=== PATIENT | female | born 1990 | race Caucasian/White ===

== ENCOUNTER 2017-09-27 07:59 | Emergency (ER) | payer OTHER ==
[~2017-09-27] VITALS: Ht 152.4 cm; Wt 64.0 kg
[~2017-09-27 07:59] MED LIST: ZOLOFT100 MG PO
[2017-09-27 08:47] LABS: HEMATOCRIT 39.3 % (36.0-46.0); HEMOGLOBIN 13.4 G/DL (11.9-15.5); MCH 28.6 PG (29.0-34.0); MCHC 34.1 G/DL (30.0-36.0); MCV 83.8 FL (83-99); PLATELET COUNT 354 K/uL (156-360); RBC DIS.WIDTH-CV 13.2 % (11.8-14.6); RBC DIS.WIDTH-SD 40.3 % (39-53); RED BLOOD COUNT 4.69 M/uL (3.80-5.20); WHITE BLOOD COUNT 11.4 K/uL (4.1-10.2)
[2017-09-27 08:54] LABS: APPEARANCE CLOUDY ((CLEAR)); BILIRUBIN NEGATIVE; BLOOD NEGATIVE; COLOR YELLOW ((YELLOW)); GLUCOSE (STRIP) NEGATIVE; KETONES NEGATIVE; LEUKOCYTES MODERATE; NITRITE NEGATIVE; PROTEIN (STRIP) 30; SPECIFIC GRAVITY 1.026 (1.000-1.030); UROBILINOGEN 0.2 MG/DL (0.2-1.0)
[2017-09-27 08:55] LABS: ALBUMIN 4.5 g/dL (3.2-4.8)
[2017-09-27 08:56] LABS: AMYLASE 91 IU/L (1-118); CHLORIDE 105 mEq/L (99-109); POTASSIUM 4.3 mEq/L (3.7-5.4); SODIUM 140 mEq/L (136-147)
[2017-09-27 08:58] LABS: GLUCOSE 120 mg/dL (70-99); TOTAL PROTEIN 8.7 g/dL (6.4-8.3)
[2017-09-27 09:00] LABS: TOTAL BILIRUBIN 0.3 mg/dL (0.0-1.0)
[2017-09-27 09:01] LABS: ALKALINE PHOSPHATASE 65 IU/L (3-129)
[2017-09-27 09:02] LABS: CREATININE 0.8 mg/dL (0.6-1.3); GFR ESTIMATE (CALCULATED) > 59 mL/min/
[2017-09-27 09:03] LABS: AST (GOT) 23 IU/L (2-34); UREA NITROGEN (BUN) 14 mg/dL (9-23)
[2017-09-27 09:04] LABS: ALT (GPT) 16 IU/L (3-49)
[2017-09-27 09:05] LABS: LIPASE 38 U/L (1.0-51.0)
[2017-09-27 09:05] LABS: AMPHETAMINE NEGATIVE (500 ng/mL); BARBITURATES NEGATIVE (200 ng/mL); BENZODIAZEPINES NEGATIVE (150 ng/mL); BUPRENORPHINE NEGATIVE (10 ng/mL); COCAINE PRESUMPTIVE POSITIVE (150 ng/mL); METHADONE NEGATIVE (200 ng/mL); METHAMPHETAMINE NEGATIVE (500 ng/mL); OPIATES (MORPHINE) NEGATIVE (100 ng/mL); OXYCODONE NEGATIVE (100 ng/mL); PHENCYCLIDINE NEGATIVE (25 ng/mL); PROPOXYPHENE NEGATIVE (300 ng/mL); THC CANNABINOIDS NEGATIVE (50 ng/mL); TRICYCLIC ANTIDEPRESSANTS NEGATIVE (300 ng/mL)
[2017-09-27 09:12] LABS: BACTERIA RARE /HPF; EPITHELIAL CELLS 4+ /HPF; MUCUS TRACE /LPF; RED BLOOD CELLS 15-20 /HPF (0-5); UCUL ADDED? YES; WHITE BLOOD CELLS 15-20 /HPF (0-5)
[2017-09-27 09:41] LABS: QUANTITATIVE HCG < 4.0 MIU/ML
[2017-09-27 10:20] LABS: TROP-I INTERPRETATION NEGATIVE; TROPONIN-I < 0.01 ng/mL (0.0-0.30)
[2017-09-27 13:12] LABS: TROP-I INTERPRETATION NEGATIVE; TROPONIN-I < 0.01 ng/mL (0.0-0.30)
[2017-09-27] MEDS ORDERED: FLAGYL500 MG PO (13:17)
[2017-09-27] MEDS ORDERED: ZOFRAN4 MG PO (13:17)
[2017-09-27] MEDS ORDERED: CIPRO500 MG PO (13:17)
[2017-09-27 13:50] VITALS: BP 118/72
== END 2017-09-27 13:53 | disposition home or self-care (01) ==
LOC: EME 07:59
PROVIDERS: Nurse Practitioner Family
DX: K80.20 Calculus of gallbladder without cholecystitis without obstruction (principal); K58.0 Irritable bowel syndrome with diarrhea; R07.9 Chest pain, unspecified
CPT/HCPCS: 71046; 74177; 80053; 81003; 82150; 83690; 84484; 84702; 84999; 85027; 87086; 93005; 99281; 99285; J1885; J2405; J7030; S0028